=== PATIENT | male | born 1965 | race Caucasian/White ===

== ENCOUNTER → 2016-06-13 | Outpatient (CLI) | payer OTHER, MEDICAID ==
[~2016-06-13] MED LIST: ABILIFY 15MG TA15 MG PO; ACETAMINOPHEN-H1 TA2 PO; ASPIR LOW81 MG PO; BUSPAR 15MG TAB15 MG PO; LISINOPRIL40 MG PO; LOPRESSOR100 M1 PO; NORVASC 5MG5 MG/TAB PO; OMEPRAZOLE40 MG PO; SERTRALINE PO; ZOCOR20 M1 PO
== END ==
LOC: RAD 12:55
DX: G25.0 Essential tremor (principal); R41.3 Other amnesia

== ENCOUNTER → 2021-11-18 | Outpatient (CLI) | payer SELFPAY ==
[2021-11-18 11:17] LABS: ALBUMIN 4.8 g/dL (3.5-5.0); POTASSIUM 4.4 mmol/L (3.5-5.1)
[2021-11-18 11:19] LABS: CALCIUM 9.6 mg/dL (8.3-10.5)
[2021-11-18 11:20] LABS: TOTAL PROTEIN 8.3 g/dL (6.4-8.3)
[2021-11-18 11:22] LABS: TOTAL BILIRUBIN 0.3 mg/dL (0.2-1.2)
== END ==
LOC: LAB 10:41
DX: E11.9 Type 2 diabetes mellitus without complications (principal)

== ENCOUNTER → 2022-02-08 | Outpatient (CLI) | payer SELFPAY | LOC: RAD 09:19 | DX: S79.921A Unspecified injury of right thigh, initial encounter (principal); X58.XXXA Exposure to other specified factors, initial encounter ==